=== PATIENT | male | born 1985 | race Caucasian/White ===

== ENCOUNTER 2020-12-24 14:54 | Emergency (ER) | payer OTHER ==
[~2020-12-24] VITALS: Ht 180.3 cm; Wt 90.9 kg
[2020-12-24 18:05] VITALS: BP 148/86
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
[2020-12-24] MEDS ORDERED: KETOROLAC 30 MG/ML VIAL. IM ONE (19:45)
[2020-12-24] MEDS ORDERED: ORPH100T PO (19:45)
[2020-12-24] MEDS ORDERED: MUPIROCIN 2 % TOPICAL CREAM 30GM TUBE. TP ONE (19:45)
[2020-12-24] MEDS ORDERED: DIPH,PERTUSS(ACELL),TET VAC/PF 0.5 ML SYRINGE. VAX IM ONE (19:45)
== END 2020-12-24 20:46 | disposition home or self-care (01) ==
LOC: ER 14:54
DX: S62.336A Displaced fracture of neck of fifth metacarpal bone, right hand, initial encounter for closed fracture (principal); V49.49XA Driver injured in collision with other motor vehicles in traffic accident, initial encounter; S23.9XXA Sprain of unspecified parts of thorax, initial encounter; F17.200 Nicotine dependence, unspecified, uncomplicated; Y92.488 Other paved roadways as the place of occurrence of the external cause; Y93.89 Activity, other specified; Y99.8 Other external cause status
CPT/HCPCS: 29125; 73130; 90471; 90715; 96372; 99284; J1885